=== PATIENT | male | born 1990 | race Caucasian/White ===

== ENCOUNTER 2017-02-20 14:05 | Emergency (ER) | payer OTHER ==
[~2017-02-20 14:05] MED LIST: BACTRIM DS TABL1 TA1 PO; NO MEDICATIONS; PREDNISONE PO; VOLTAREN75 MG PO
[2017-02-20] MEDS ORDERED: SYNTHROID PO (14:14)
[2017-02-20] MEDS ORDERED: LOPRESSOR (14:14)
[2017-02-20] MEDS ORDERED: NORVASC PO (14:15)
[2017-02-20] MEDS ORDERED: AUGMENTIN (14:15)
== END 2017-02-20 15:08 | disposition home or self-care (01) ==
LOC: SED 14:05
DX: L02.413 Cutaneous abscess of right upper limb (principal); I10 Essential (primary) hypertension; F17.210 Nicotine dependence, cigarettes, uncomplicated; Z79.84 Long term (current) use of oral hypoglycemic drugs; Z79.899 Other long term (current) drug therapy
CPT/HCPCS: 10060; 99283